=== PATIENT | female | born 1980 | race African-American/Black ===

== ENCOUNTER 2019-05-26 19:15 | Emergency (ER) | payer BC, OTHER ==
[~2019-05-26] VITALS: Ht 160 cm; Wt 90.9 kg
[2019-05-26 19:35] VITALS: BP 150/106
--- NOTE | 2019-05-26 21:27 | RAD ---
CT LUMBAR SPINE WO CONTRAST, CT THORACIC SPINE WO CONTRAST Date: 05/26/2019 8:31 PM Indication: Pain after falling Comparison: None. Technique: Helical CT images of the thoracic and lumbar spine were obtained without contrast. Coronal and sagittal reformatted images were also performed. One or more of the following dose reduction techniques were utilized: Automated exposure control (AEC), Adjustment of mA and/or kV according to patient size, Use of iterative reconstruction technique such as ASiR, CT scan done according to ALARA and image gently/image wisely. Findings: The thoracic and lumbar spine are normally aligned. Acute mildly displaced sacrococcygeal fracture. Thoracic and lumbar vertebral body heights are maintained without compression deformity. The intervertebral disc spaces are normal. No aggressive lytic or blastic osseous lesion. No high grade spinal canal stenosis or neuroforaminal narrowing. No soft tissue abnormality within the visualized chest, abdomen, or pelvis. The visualized aorta is normal caliber. IMPRESSION: 1. Acute mildly displaced sacrococcygeal fracture. 2. No acute thoracic or lumbar spine fractures. Electronically signed by: Bear Franklin MD (05/26/2019 9:24 PM) [facility]
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
[2019-05-26] MEDS ORDERED: METH4TAB2 PO (21:49)
[2019-05-26] MEDS ORDERED: TRAM50TA PO (21:49)
[2019-05-26] MEDS ORDERED: METH500T7 PO (21:49)
[2019-05-26] MEDS ORDERED: ONDA4TAB12 PO (21:49)
== END 2019-05-26 22:00 | disposition home or self-care (01) ==
LOC: ER 19:15
DX: S32.2XXA Fracture of coccyx, initial encounter for closed fracture (principal); S20.222A Contusion of left back wall of thorax, initial encounter; S20.221A Contusion of right back wall of thorax, initial encounter; Z98.890 Other specified postprocedural states; Z88.5 Allergy status to narcotic agent; W19.XXXA Unspecified fall, initial encounter; Y93.89 Activity, other specified; Y92.89 Other specified places as the place of occurrence of the external cause; Y99.8 Other external cause status
CPT/HCPCS: 72128; 72131; 81025; 99284

== ENCOUNTER 2019-06-30 18:32 | Emergency (ER) | payer BC ==
[~2019-06-30] VITALS: Ht 160 cm; Wt 94.0 kg
[~2019-06-30 18:32] MED LIST: METH4TAB2 PO; METH500T7 PO; ONDA4TAB12 PO; TRAM50TA PO
[2019-06-30 19:17] VITALS: BP 161/93
[2019-06-30] MEDS ORDERED: BISACODYL 5 MG TABLET.DR. PO STA (19:20)
[2019-06-30] MEDS ORDERED: POLY17PO29 PO (19:29)
[2019-06-30] MEDS ORDERED: MAGN296S68 PO (19:29)
[2019-06-30] MEDS ORDERED: DOCU100C28 PO (19:29)
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
[2019-06-30] MEDS ORDERED: MAGNESIUM CITRATE 296 ML SOLUTION. PO ONE (19:30)
== END 2019-06-30 19:56 | disposition home or self-care (01) ==
LOC: ER 18:32
DX: K59.00 Constipation, unspecified (principal); M54.5 Low back pain; Z88.5 Allergy status to narcotic agent
CPT/HCPCS: 99283